=== PATIENT | male | born 1970 | race Two or more races ===

== ENCOUNTER → 2023-03-17 | Emergency (ER) | payer OTHER ==
[~2023-03-17] VITALS: Ht 157.5 cm; Wt 71.7 kg
[~2023-03-17] MED LIST: DOLOGEN CAPLET1 EACH PO; MEDROL4 MG PO; NABUMETONE750 MG PO; PREDNISONE5 MG/DOSE- PO; VASOTEC10 MG; ZESTRIL10 M1
== END | disposition home or self-care (01) ==
LOC: ER 19:52
DX: S51.811A Laceration without foreign body of right forearm, initial encounter (principal); W26.8XXA Contact with other sharp object(s), not elsewhere classified, initial encounter; Y93.H9 Activity, other involving exterior property and land maintenance, building and construction; Y92.093 Driveway of other non-institutional residence as the place of occurrence of the external cause; Y99.8 Other external cause status; I10 Essential (primary) hypertension

== ENCOUNTER 2023-04-01 11:18 | Emergency (ER) | payer OTHER ==
[~2023-04-01] VITALS: Ht 157.5 cm; Wt 68.9 kg
== END 2023-04-01 14:13 | disposition home or self-care (01) ==
LOC: ER 11:18
DX: Z48.02 Encounter for removal of sutures (principal)